=== PATIENT | male | born 1950 | race Caucasian/White ===

== ENCOUNTER 2023-07-22 08:24 | Day surgery (SDC) | payer MEDICARE ==
[~2023-07-22] VITALS: Ht 175.3 cm; Wt 110.0 kg
[2023-07-22 08:50] VITALS: BP 132/75; PULSE 62; RESP 14; TEMP 97.6; O2SAT 95
[2023-07-22] MEDS ORDERED: LISI10TA27 PO (09:18)
[2023-07-22] MEDS ORDERED: BACL20TA PO (09:18)
[2023-07-22] MEDS ORDERED: FLO0.4C (09:18)
[2023-07-22] MEDS ORDERED: ATOR40TA72 PO (09:18)
[2023-07-22] MEDS ORDERED: OXYC10TA47 (09:18)
[2023-07-22] MEDS ORDERED: TIMO5DRO15 EACHEYE (09:18)
[2023-07-22] MEDS ORDERED: FINA5TAB11 PO (09:18)
[2023-07-22] MEDS ORDERED: OMEP40CA21 PO (09:18)
[2023-07-22] MEDS ORDERED: OXYC10TA47 PO (09:19)
[2023-07-22] MEDS ORDERED: TEST200V33 (09:20)
[2023-07-22] MEDS ORDERED: HYDR-3968 PO (09:20)
[2023-07-22 09:42] LABS: PROTHROMBIN TIME 10.8 SECONDS (9.0-12.0)
[2023-07-22 09:56] LABS: BASOPHILS % (AUTO) 0.3 % (0-1); EOSINOPHILS # (AUTO) 0.2 X10'3 (0-0.9); EOSINOPHILS % (AUTO) 2.5 % (0-6); HEMOGLOBIN 16.8 g/dl (14.0-17.9); LYMPHOCYTES # (AUTO) 1.5 X10'3 (1.1-4.8); LYMPHOCYTES % (AUTO) 24.7 % (21-51); MEAN CORPUSCULAR HEMOGLOBIN 29.7 PG (27.0-31.0); MEAN CORPUSCULAR HGB CONC 33.6 g/dL (33.0-36.5); MEAN CORPUSCULAR VOLUME 88.3 FL (78-98); MEAN PLATELET VOLUME 7.2 FL (7.4-10.4); MONOCYTES # (AUTO) 0.4 X10'3 (0-0.9); MONOCYTES % (AUTO) 7.2 % (2-12); NEUTROPHILS # (AUTO) 3.9 X10'3 (1.8-7.7); NEUTROPHILS % (AUTO) 65.3 % (42-75); PLATELET COUNT 227 X10'3 (140-440); RED BLOOD COUNT 5.66 X10'6 (4.70-6.10); RED CELL DISTRIBUTION WIDTH 15.7 % (11.5-14.5)
--- NOTE | 2023-07-22 11:15 | NUR ---
Patient decided to not proceed with procedure today. Dr. Adams notified.
== END 2023-07-22 11:15 | disposition short-term general hospital (02) ==
LOC: SSTAY O 08:24
PROVIDERS: ATTEND Radiology Vascular & Interventional Radiology
DX: R91.1 Solitary pulmonary nodule (principal); Z53.8 Procedure and treatment not carried out for other reasons; I10 Essential (primary) hypertension; N40.1 Benign prostatic hyperplasia with lower urinary tract symptoms; E78.5 Hyperlipidemia, unspecified; I73.9 Peripheral vascular disease, unspecified; K21.9 Gastro-esophageal reflux disease without esophagitis; M51.36 Other intervertebral disc degeneration, lumbar region; M86.9 Osteomyelitis, unspecified; Z87.891 Personal history of nicotine dependence; Z98.890 Other specified postprocedural states; Z90.49 Acquired absence of other specified parts of digestive tract; Z89.431 Acquired absence of right foot
CPT/HCPCS: 36415; 85025; 85610; J7030

== ENCOUNTER 2024-03-29 07:57 | Day surgery (SDC) | payer MEDICARE ==
[2024-03-24 12:31] LABS: BASOPHILS % (AUTO) 0.4 % (0-1); EOSINOPHILS # (AUTO) 0.2 X10'3 (0-0.9); EOSINOPHILS % (AUTO) 3.6 % (0-6); LYMPHOCYTES # (AUTO) 1.8 X10'3 (1.1-4.8); LYMPHOCYTES % (AUTO) 32.3 % (21-51); MEAN CORPUSCULAR HEMOGLOBIN 30.4 PG (27.0-31.0); MEAN CORPUSCULAR HGB CONC 33.3 g/dL (33.0-36.5); MEAN CORPUSCULAR VOLUME 91.5 FL (78-98); MEAN PLATELET VOLUME 6.8 FL (7.4-10.4); MONOCYTES # (AUTO) 0.5 X10'3 (0-0.9); MONOCYTES % (AUTO) 9.9 % (2-12); NEUTROPHILS % (AUTO) 53.8 % (42-75); PRE OP HEMATOCRIT 48.5 % (42.0-52.0); PRE OP HEMOGLOBIN 16.1 g/dL (14.0-17.9); PRE OP PLATELET COUNT 237 X10'3 (140-440); PRE OP WHITE BLOOD COUNT 5.5 10'3 (4.8-10.8); RED CELL DISTRIBUTION WIDTH 14.3 % (11.5-14.5)
[2024-03-24 12:43] LABS: ALBUMIN 3.7 G/DL (3.4-5.0); ALBUMIN/GLOBULIN RATIO 1.2 (1.1-1.5); ALKALINE PHOSPHATASE 82 IU/L (46-116); BLOOD UREA NITROGEN 10 MG/DL (7-18); BUN/CREATININE RATIO 10.1 (10.0-20.0); CALCIUM 8.6 MG/DL (8.5-10.1); CHLORIDE 105 MMOL/L (99-107); CREATININE 0.99 MG/DL (0.60-1.10); PRE OP ALT 20 U/L (30-65); PRE OP ANION GAP 7 (8-16); PRE OP AST 25 U/L (10-37); PRE OP BILIRUB, TOTAL 0.8 MG/DL (0.0-1.0); PRE OP GLUCOSE 119 MG/DL (70-104); PRE OP POTASSIUM 4.3 MMOL/L (3.4-5.1); PRE OP SODIUM 144 MMOL/L (135-145); TOTAL CARBON DIOXIDE 32.2 MMOL/L (24-32); TOTAL PROTEIN 6.9 G/DL (6.4-8.2); eGFR 74 ML/MIN
[~2024-03-29] VITALS: Ht 172.7 cm; Wt 108.9 kg
[2024-03-29] VITALS (8 sets, daily range): BP systolic 90–112; BP diastolic 48–64; PULSE 56–82; RESP 12–17; TEMP 98.4; O2SAT 92–97
[~2024-03-29 07:57] MED LIST: ATOR40TA72 PO; BUPIVAcaine/PF 2.5mg/ml (0.25%) 10ml vial ONE; FINA5TAB11 PO; FLO0.4C PO; LIDOcaine 2% (20mg/ml) 5ml vial ONE; LISI10TA27 PO; OMEP40CA21 PO; OXYC10TA47 PO; PREG100C56 PO; PREG50CA65 PO; TEST200V33 SQ; TIMO5DRO15 EACHEYE
[2024-03-29] MEDS ORDERED: ringers solution, lacted 1,000 ML IV SCH (08:10)
[2024-03-29] MEDS ORDERED: proCHLORperazine 10 MG/2 ml inj IV PRN (08:10)
[2024-03-29] MEDS ORDERED: ondansetron/PF 4mg/2ml inj IV PRN (08:10)
[2024-03-29] MEDS ORDERED: morphine 4 MG/ML inj SYRINge IV PRN (08:10)
[2024-03-29] MEDS ORDERED: morphine 2 MG/ML inj. syringe IV PRN (08:10)
[2024-03-29] MEDS ORDERED: meperidine/PF 25mg/ml syringe IV PRN ×3 (08:10)
[2024-03-29] MEDS ORDERED: ASPI81TA52 PO (08:34)
[2024-03-29] MEDS: cefazolin 2gm/D5W 100mL 100 ML IV ONE (08:43)
[2024-03-29] MEDS: ringers solution, lacted 1,000 ML IV SCH (08:43)
[2024-03-29] MEDS: famotidine 20mg tablet PO ONE (08:43)
[2024-03-29] MEDS ORDERED: midazolam 1 mg/ML 2ml injection ONE (10:28)
[2024-03-29] MEDS ORDERED: fentaNYL/PF 50MCG/1 ML 2ML syringe ONE (10:28)
[2024-03-29] MEDS ORDERED: propofol inj 20 ML IV ONE (10:28)
[2024-03-29] MEDS ORDERED: LIDOcaine 2% (20mg/ml) 5ml vial ONE (10:32)
[2024-03-29] MEDS: BUPIVAcaine/PF 2.5mg/ml (0.25%) 10ml vial IJ ONE (10:40)
== END 2024-03-29 11:56 | disposition home or self-care (01) ==
LOC: PAS 07:57
PROVIDERS: ATTEND Orthopaedic Surgery Hand Surgery
DX: G56.01 Carpal tunnel syndrome, right upper limb (principal); I10 Essential (primary) hypertension; E11.9 Type 2 diabetes mellitus without complications; E66.9 Obesity, unspecified; Z87.891 Personal history of nicotine dependence; Z90.49 Acquired absence of other specified parts of digestive tract; Z98.890 Other specified postprocedural states; Z68.36 Body mass index [BMI] 36.0-36.9, adult
CPT/HCPCS: 36415; 64721; 80053; 82948; 85025; 93005; J0690; J2250; J2704; J3010; J3490; J7030; J7120; Z7506; Z7512; A4215; A6449

== ENCOUNTER 2024-06-18 11:34 | Day surgery (SDC) | payer MEDICARE ==
[~2024-06-18] VITALS: Ht 170.2 cm; Wt 112.9 kg
[~2024-06-18 11:34] MED LIST changes: +ASPI81TA52 PO; -BUPIVAcaine/PF 2.5mg/ml (0.25%) 10ml vial ONE; -LIDOcaine 2% (20mg/ml) 5ml vial ONE
[2024-06-18 11:55] VITALS: BP 127/80; PULSE 83; RESP 22; TEMP 98; O2SAT 92
[2024-06-18 12:00] VITALS: RESP 22; O2SAT 92
[2024-06-18] MEDS ORDERED: normal saline 1000ml 1,000 ML IV SCH (12:05)
[2024-06-18] MEDS ORDERED: CETI5TAB (12:09)
[2024-06-18] MEDS ORDERED: IPRA3AMP31 NEB (12:09)
[2024-06-18 13:14] VITALS: BP 95/60; PULSE 83; RESP 22; O2SAT 92
[2024-06-18 13:31] VITALS: BP 117/66; PULSE 72; RESP 20; O2SAT 93
[2024-06-18 13:45] VITALS: BP 122/71; PULSE 76; RESP 15; O2SAT 94
== END 2024-06-18 14:33 | disposition home or self-care (01) ==
LOC: SSTAY O 11:34
PROVIDERS: ATTEND Radiology Diagnostic Radiology
DX: E04.1 Nontoxic single thyroid nodule (principal); I10 Essential (primary) hypertension; E78.00 Pure hypercholesterolemia, unspecified; K21.9 Gastro-esophageal reflux disease without esophagitis; G47.33 Obstructive sleep apnea (adult) (pediatric); I73.9 Peripheral vascular disease, unspecified; Z79.891 Long term (current) use of opiate analgesic; Z79.890 Hormone replacement therapy; Z79.899 Other long term (current) drug therapy; Z96.643 Presence of artificial hip joint, bilateral; Z98.890 Other specified postprocedural states; Z82.3 Family history of stroke; Z83.3 Family history of diabetes mellitus; Z82.61 Family history of arthritis
CPT/HCPCS: 10005; A4615; 88173; 88305